=== PATIENT | male | born 1965 | race Caucasian/White ===

== ENCOUNTER 2024-03-23 04:14 | Day surgery (SDC) | payer OTHER ==
[2024-03-22 14:51] VITALS: BMI 40.3
[2024-03-23] MEDS ORDERED: HEPARIN NA (PORCINE) 5,000 UNITS/ML 1ML VIAL ONE ×3 (12:28→13:37)
[2024-03-23] MEDS ORDERED: ONDANSETRON 4 MG/2 ML VIAL IVPUSH PRN (12:57)
[2024-03-23] MEDS ORDERED: ACETAMINOPHEN 325 MG TABLET (FP) PO PRN ×2 (12:57→15:03)
[2024-03-23] MEDS ORDERED: oxyCODONE HCL 5 MG TABLET PO PRN ×2 (12:57→15:03)
[2024-03-23] MEDS ORDERED: LACTATED RINGERS SOLUTION 1,000 ML IV SCH ×2 (13:00→15:03)
[2024-03-23] MEDS ORDERED: LIDOCAINE HCL 1%, 10 MG/ML (20ML VIAL) ONE ×2 (13:35→13:37)
[2024-03-23] MEDS ORDERED: DEXMEDETOMIDINE HCL 200 MCG/2 ML IVPB ONE (13:37)
[2024-03-23] MEDS ORDERED: ACETAMINOPHEN INJECTION 100 ML IVPB ONE (13:37)
[2024-03-23] MEDS ORDERED: MIDAZOLAM HCL 2 MG/2 ML SINGLE DOSE VIAL ONE (13:44)
[2024-03-23] MEDS ORDERED: KETAMINE HCL 200 MG/20 ML VIAL ONE (13:47)
[2024-03-23] MEDS ORDERED: GLYCOPYRROLATE 0.2 MG/1 ML VIAL ONE (13:47)
[2024-03-23] MEDS: ceFAZolin SODIUM 1 GM VIAL IVPB ONE (13:52)
[2024-03-23] MEDS ORDERED: ADENOSINE 6 MG/2 ML VIAL IVPUSH ONE (14:47)
[2024-03-23] MEDS: ENOXAPARIN NA (PORCINE) 120 MG/0.8 ML DISP.SYRIN SQ SCH (15:40)
[2024-03-23] MEDS: LACTATED RINGERS SOLUTION 1,000 ML/1,000 ML INFUS.BAG IV SCH (17:34)
[2024-03-23 19:27] VITALS: RESP 20
[2024-03-23] MEDS: ATORVASTATIN CA 40 MG TABLET (FP) PO SCH (23:01)
[2024-03-23] MEDS: RIVAROXABAN 20 MG TABLET PO SCH (23:02)
[2024-03-23] MEDS: hydrALAZINE HCL 10 MG TABLET PO ONE (23:02)
[2024-03-24] MEDS: hydrALAZINE HCL 25 MG TABLET (FP) PO ONE (01:40)
[2024-03-24] MEDS: LABETALOL HCL 100 MG TABLET (FP) PO ONE (05:01)
[2024-03-24] MEDS: amLODIPine BESYLATE 10 MG TABLET (FP) PO SCH (10:14)
[2024-03-24] MEDS: LOSARTAN 50MG/HCTZ 12.5MG 1 TAB PO SCH (10:14)
[2024-03-24] MEDS: SPIRONOLACTONE 25 MG TABLET PO SCH (10:14)
[2024-03-24] MEDS: ASPIRIN 81 MG CHEWABLE TABLETS PO SCH (10:24)
[2024-03-24 11:39] LABS: CREATININE 2.8 mg/dL (0.55-1.3)
[2024-03-24 12:30] VITALS: BP 155/98; PULSE 78; TEMP 97.8
== END 2024-03-24 14:45 | disposition home or self-care (01) ==
LOC: JASUSAT 04:14 → MERGE 04:14 → JASU-SURG 04:14 → J8W 16:48 → JASUSAT 03-24 14:45
PROVIDERS: ATTEND Surgery Vascular Surgery
PROC: 04CM3ZZ Extirpation of Matter from Right Popliteal Artery, Percutaneous Approach (ICD-10-PCS; principal; 2024-03-23 13:00)
DX: I82.421 Acute embolism and thrombosis of right iliac vein (principal)
CPT/HCPCS: 37187; C1757; 36415; 76000-TC-FY; 82565; 84520; 86850; 86900; 86901; 94760; J0131; J1644

== ENCOUNTER 2024-03-27 08:45 | Inpatient (IN) | payer OTHER ==
[2024-03-27] MEDS ORDERED: ACETAMINOPHEN 325 MG TABLET (FP) ONE (09:59)
[2024-03-27] MEDS: SODIUM CHLORIDE 0.9% 500 ML INFUS.BAG IV ONE ×2 (10:21→11:28)
[2024-03-27] MEDS: ACETAMINOPHEN 500 MG TABLET (FP) PO ONE (10:21)
[2024-03-27 10:26] LABS: BASO % 0.3 % (0-2.0); EOS % 1.4 % (0-4.5); HEMATOCRIT 44.2 % (35.4-49); LYMPH % 12.4 % (8-40); MCH 32.4 pg (25.7-33.7); MCHC 33.8 g/dl (32.0-35.9); MEAN CELL VOLUME 95.8 fl (80-96); MEAN PLT VOLUME 7.9 fl (7.5-11.1); MONO % 5.3 % (3.8-10.2); NEUT % 80.6 % (42.8-82.8); PLATELET COUNT 200 10^3/uL (134-434); RBC 4.61 M/mm3 (4.00-5.60); RDW 13.3 % (11.9-15.9); WHITE BLOOD COUNT 8.8 K/mm3 (4.0-10.0)
[2024-03-27 10:28] LABS: EPI CELLS 14 /uL (0-25.1); HYALINE CASTS 1 /uL (0-3.1); PH,URINE 6.5 (5.0-8.0); URINE APPEARANCE CLEAR; URINE BACTERIA 7 /uL (0-1359); URINE BILIRUBIN NEGATIVE (NEGATIVE); URINE COLOR YELLOW; URINE GLUCOSE (UA) NEGATIVE (NEGATIVE); URINE KETONE NEGATIVE (NEGATIVE); URINE LEUK ESTERASE NEGATIVE (NEGATIVE); URINE NITRITE NEGATIVE (NEGATIVE); URINE PROTEIN NEGATIVE (NEGATIVE); URINE RBC 48 /uL (0-23.9); URINE UROBILINOGEN 0.2 mg/dL (0.2-1.0); URINE WBC 10 /uL (0-25.8)
[2024-03-27 10:54] LABS: CHLORIDE 109 mmol/L (98-107); POTASSIUM 5.6 mmol/L (3.5-5.1); SODIUM 138 mmol/L (136-145)
[2024-03-27 10:55] LABS: CALCIUM 9.1 mg/dL (8.5-10.1)
[2024-03-27 10:56] LABS: ALBUMIN 3.2 g/dl (3.4-5.0); ANION GAP 6 mmol/L (4-13); BLOOD UREA NITROGEN 39.6 mg/dL (7-18); CO2 23 mmol/L (21-32); GLUCOSE,RANDOM 111 mg/dL (74-106)
[2024-03-27 10:59] LABS: CREATININE 3.1 mg/dL (0.55-1.3); SGOT/AST 41 U/L (15-37); SGPT/ALT 30 U/L (13-61)
[2024-03-27 11:01] LABS: BILIRUBIN,TOTAL 0.8 mg/dL (0.2-1); TOT PROT 7.4 g/dl (6.4-8.2)
[2024-03-27 11:02] LABS: ALK PHOS 86 U/L (45-117)
[2024-03-27 12:28] LABS: POTASSIUM 5.1 mmol/L (3.5-5.1)
[2024-03-27 12:29] LABS: BLOOD UREA NITROGEN 38.4 mg/dL (7-18); CALCIUM 8.3 mg/dL (8.5-10.1)
[2024-03-27 15:58] VITALS: BMI 41.0
[2024-03-27] MEDS: SODIUM CHLORIDE 1,000 ML IV SCH (16:19)
[2024-03-27] MEDS: RIVAROXABAN 20 MG TABLET PO SCH (17:39)
[2024-03-28] MEDS: ACETAMINOPHEN 325 MG TABLET (FP) PO PRN (00:39)
[2024-03-28 11:31] LABS: POTASSIUM 4.8 mmol/L (3.5-5.1)
[2024-03-28 11:39] LABS: CALCIUM 8.6 mg/dL (8.5-10.1)
[2024-03-28 11:43] LABS: CREATININE 2.6 mg/dL (0.55-1.3)
[2024-03-29 09:21] LABS: BASO % 0.4 % (0-2.0); EOS % 2.7 % (0-4.5); MCH 32.7 pg (25.7-33.7); MCHC 34.1 g/dl (32.0-35.9); MEAN CELL VOLUME 95.9 fl (80-96); MEAN PLT VOLUME 7.7 fl (7.5-11.1); MONO % 3.6 % (3.8-10.2); NEUT % 75.3 % (42.8-82.8); PLATELET COUNT 216 10^3/uL (134-434); RBC 4.28 M/mm3 (4.00-5.60); RDW 12.9 % (11.9-15.9); WHITE BLOOD COUNT 6.8 K/mm3 (4.0-10.0)
[2024-03-29 09:42] LABS: ALBUMIN 2.9 g/dl (3.4-5.0); BLOOD UREA NITROGEN 30.3 mg/dL (7-18); CALCIUM 8.7 mg/dL (8.5-10.1)
[2024-03-29 09:45] LABS: CREATININE 2.5 mg/dL (0.55-1.3)
[2024-03-29 09:47] LABS: TOT PROT 6.5 g/dl (6.4-8.2)
[2024-03-29] MEDS: SODIUM CHLORIDE 0.45% 1,000 ML IV SCH (15:06)
[2024-03-29 16:53] LABS: EPI CELLS 4 /uL (0-25.1); HYALINE CASTS 0 /uL (0-3.1); URINE APPEARANCE CLEAR; URINE BACTERIA 6 /uL (0-1359); URINE BILIRUBIN NEGATIVE (NEGATIVE); URINE COLOR YELLOW; URINE GLUCOSE (UA) NEGATIVE (NEGATIVE); URINE KETONE NEGATIVE (NEGATIVE); URINE LEUK ESTERASE NEGATIVE (NEGATIVE); URINE NITRITE NEGATIVE (NEGATIVE); URINE PROTEIN NEGATIVE (NEGATIVE); URINE RBC 15 /uL (0-23.9); URINE WBC 4 /uL (0-25.8)
[2024-03-29] MEDS: LABETALOL HCL 100 MG TABLET (FP) PO SCH (22:00)
[2024-03-29] MEDS: RIVAROXABAN 15 MG TABLET PO SCH (22:00)
[2024-03-30] MEDS: RIVAROXABAN 15 MG TABLET PO SCH (08:43)
[2024-03-30 09:53] LABS: HEMOGLOBIN 14.3 GM/dL (11.7-16.9); MCH 32.4 pg (25.7-33.7); MEAN CELL VOLUME 95.3 fl (80-96); PLATELET COUNT 224 10^3/uL (134-434); RBC 4.41 M/mm3 (4.00-5.60); WHITE BLOOD COUNT 7.8 K/mm3 (4.0-10.0)
[2024-03-30 10:15] LABS: POTASSIUM 4.1 mmol/L (3.5-5.1)
[2024-03-30 10:16] LABS: POTASSIUM 4.1 mmol/L (3.5-5.1)
[2024-03-30 10:19] LABS: BLOOD UREA NITROGEN 26.8 mg/dL (7-18); CALCIUM 8.7 mg/dL (8.5-10.1)
[2024-03-30 10:22] LABS: CREATININE 2.3 mg/dL (0.55-1.3)
[2024-03-30 10:23] LABS: ALBUMIN 3.2 g/dl (3.4-5.0); BLOOD UREA NITROGEN 26.6 mg/dL (7-18); CALCIUM 8.5 mg/dL (8.5-10.1)
[2024-03-30 10:26] LABS: CREATININE 2.3 mg/dL (0.55-1.3)
[2024-03-30 10:27] LABS: PHOSPHOROUS 3.6 mg/dL (2.5-4.9)
[2024-03-30 15:01] VITALS: RESP 18
[2024-03-31 10:14] LABS: POTASSIUM 4.2 mmol/L (3.5-5.1)
[2024-03-31 10:16] LABS: ALBUMIN 3.1 g/dl (3.4-5.0); BLOOD UREA NITROGEN 22.3 mg/dL (7-18); CALCIUM 8.7 mg/dL (8.5-10.1)
[2024-03-31 10:19] LABS: CREATININE 2.1 mg/dL (0.55-1.3)
[2024-03-31 10:21] LABS: BILIRUBIN,TOTAL 1.1 mg/dL (0.2-1); TOT PROT 6.8 g/dl (6.4-8.2)
[2024-03-31 15:02] VITALS: BP 146/94; PULSE 67; TEMP 97.9
== END 2024-03-31 15:35 | disposition home or self-care (01) | DRG 684 ==
LOC: JER 08:45 → JERBED 13:36 → OBSVTOIN 15:15 → J6S 15:31
PROVIDERS: ADMIT Internal Medicine; ATTEND Family Medicine
DX: N17.9 Acute kidney failure, unspecified (principal); I10 Essential (primary) hypertension; R30.0 Dysuria; Z86.718 Personal history of other venous thrombosis and embolism
CPT/HCPCS: 36415; 76775-TC; 80048; 80053; 81003; 82550; 82570; 83735; 83935; 84100; 84156; 84300; 85025; 85027; 87086; 99285-25; G0378